=== PATIENT | male | born 1960 | race Two or more races ===

== ENCOUNTER 2016-10-23 21:36 | Emergency (ER) | payer MEDICAID, OTHER ==
[~2016-10-23] VITALS: Ht 172.7 cm; Wt 71.2 kg
--- NOTE | 2016-10-23 21:38 | NUR ---
PT BILL [facility] TO ER BED 12. PRESENTS W FACIAL ABRASIONS, FALL, POSSIBLE ETOH, EMPTY ATIVAN PILL CONTAINER FOUND W/ PT'S BELONGINGS. GOWNED AND PLACED ON MONITOR. NAD NOTED. AWAITING MD JASON.
--- NOTE | 2016-10-23 21:58 | NUR ---
COLLEEN DOHERTY AT BEDSIDE FOR EVAL.
[2016-10-23] MEDS ORDERED: IV NS 0.9% 1,000 ML BAG IV ONE (22:00)
[2016-10-23 22:18] LABS: CALCIUM, SERUM 7.8 mg/dL (8.5-10.1); CARBON DIOXIDE 27 mmol/L (21-32); CHLORIDE 109 mmol/L (98-107); CREATININE 1.1 mg/dL (0.6-1.3); GLUCOSE 105 mg/dL (74-106); POTASSIUM 3.5 mmol/L (3.5-5.1); SODIUM SERUM 146 mmol/L (136-145); UREA NITROGEN, BLOOD 18 mg/dL (7-18)
[2016-10-23 22:26] LABS: ACETAMINOPHEN 0 ug/ml (10-30); ALANINE AMINOTRANSFERASE 40 U/L (12-78); ALBUMIN 3.7 g/dL (3.4-5.0); ALCOHOL, BLOOD 339 mg/dL (0-0); ALKALINE PHOSPHATASE 42 U/L (46-116); ASPARTATE AMINOTRANSFERASE 32 U/L (15-37); BILIRUBIN,DIRECT 0.1 mg/dL (0.0-0.2); BILIRUBIN,TOTAL 0.5 mg/dL (0.2-1.0); SALICYLATE 0.7 mg/dL (2.8-20.0); TOTAL PROTEIN, SERUM 7.2 g/dL (6.4-8.2)
--- NOTE | 2016-10-23 22:28 | NUR ---
PT TO RADIOLOGY FOR HEAD AND C SPINE CT SCAN VIA ANASTASIA
[2016-10-23 22:32] LABS: BASOPHILS % (AUTO) 0.5 % (0.0-2.0); EOSINOPHILS # (AUTO) 0.1 /CMM (0.0-0.7); EOSINOPHILS % (AUTO) 1.8 % (0.0-6.0); HEMATOCRIT 47 % (39-51); HEMOGLOBIN 15.7 g/dL (13.5-17.5); LYMPHOCYTES # (AUTO) 3.2 /CMM (0.8-4.8); LYMPHOCYTES % (AUTO) 45.9 % (20.0-44.0); MEAN CORPUSCULAR HEMOGLOBIN 32 PG (26.0-33.0); MEAN CORPUSCULAR HGB CONC 34 g/dl (31.0-36.0); MEAN CORPUSCULAR VOLUME 95 fL (80-96); MONOCYTES # (AUTO) 0.6 /CMM (0.1-1.30); MONOCYTES % (AUTO) 7.9 % (2.0-12.0); NEUTROPHILS # (AUTO) 3.1 /CMM (1.8-8.9); NEUTROPHILS % (AUTO) 43.9 % (43.0-81.0); PLATELET COUNT (AUTO) 184 /CMM (150-450); RDW COEFFICIENT OF VARIATION 13.8 (11.5-15.0); WHITE BLOOD COUNT (AUTO) 7.1 K/uL (4.3-11.0)
[2016-10-23 22:41] LABS: INR 0.9 (0.87-1.13); PROTHROMBIN TIME 9.6 SECS (9.5-12.7)
[2016-10-23 22:54] LABS: TROPONIN I < 0.017 ng/mL (0.00-0.056)
--- NOTE | 2016-10-23 23:21 | NUR ---
REPORT TO CHARGE NURSE FOSTER FOR SARAH.
[2016-10-24] MEDS ORDERED: TDAP [DIPH/PERTUSSIS/TET] 0.5 ML VIAL IM ONE
--- NOTE | 2016-10-24 01:20 | NUR ---
PT RESTING COMFORTABLY ON BED. VSS, NAD NOTED. PT AWAKEN TO NAME THEN RETURNS TO SLEEP. WILL CONT TO MONITOR.
--- NOTE | 2016-10-24 03:20 | NUR ---
PT RESTING COMFORTABLY ON BED. VSS, NAD NOTED. PT AWAKEN TO NAME; GIVEN WARM BLANKET THEN RETURNS TO SLEEP. WILL CONT TO MONITOR.
--- NOTE | 2016-10-24 04:15 | NUR ---
PT SLEEPING LEFT LATERAL ON BED. VSS, NAD NOTED. PT AWAKEN TO NAME THEN RETURNS TO SLEEP. WILL CONT TO MONITOR.
--- NOTE | 2016-10-24 06:51 | NUR ---
Patient discharged to home in stable condition. Written and verbal after care instructions given. Patient verbalizes understanding of instruction. IV removed. Catheter intact and site benign. Pressure and 4x4 applied to site. No bleeding noted. Pt ambulatory with a steady gait. VSS, NAD noted on DC. Pt declined tetanus booster stating, "I got a tetanus shot last year." Pt denies complaint on DC.
[2016-10-24 06:53] VITALS: BP 141/85
== END 2016-10-24 06:54 | disposition home or self-care (01) ==
LOC: ER 21:37
DX: S00.531A Contusion of lip, initial encounter (principal); S00.211A Abrasion of right eyelid and periocular area, initial encounter; S09.93XA Unspecified injury of face, initial encounter; R40.1 Stupor; F10.129 Alcohol abuse with intoxication, unspecified; F15.10 Other stimulant abuse, uncomplicated; E86.0 Dehydration; W18.39XA Other fall on same level, initial encounter; Y93.89 Activity, other specified; Y92.89 Other specified places as the place of occurrence of the external cause; Y99.9 Unspecified external cause status
CPT/HCPCS: 36415; 70450-TC; 71010-TC; 72125-TC; 80048-TC; 80076-TC; 80305; 82962-TC; 84484-TC; 85025-TC; 85730-TC; A4606; A6402; G0480; J7030; L0172; Z7610

== ENCOUNTER 2022-12-15 06:01 | Emergency (ER) | payer MEDICAID ==
[~2022-12-15] VITALS: Ht 180.3 cm; Wt 79.4 kg
[2022-12-15 08:16] LABS: BASOPHILS % (AUTO) 0.7 % (0.0-2.0); EOSINOPHILS # (AUTO) 0.1 K/uL (0.0-0.7); EOSINOPHILS % (AUTO) 1.1 % (0.0-6.0); HEMATOCRIT 45 % (39-51); HEMOGLOBIN 14.8 g/dL (13.5-17.5); LYMPHOCYTES # (AUTO) 1.4 K/uL (0.8-4.8); LYMPHOCYTES % (AUTO) 23.1 % (20.0-44.0); MEAN CORPUSCULAR HEMOGLOBIN 30 PG (26.0-33.0); MEAN CORPUSCULAR HGB CONC 33 g/dl (31.0-36.0); MEAN CORPUSCULAR VOLUME 92 fL (80-96); MONOCYTES # (AUTO) 0.6 K/uL (0.1-1.30); MONOCYTES % (AUTO) 9.9 % (2.0-12.0); NEUTROPHILS # (AUTO) 3.9 K/uL (1.8-8.9); NEUTROPHILS % (AUTO) 65.2 % (43.0-81.0); PLATELET COUNT (AUTO) 195 K/uL (150-450); RED BLOOD CELL COUNT(AUTO) 4.88 MIL/uL (4.5-6.0); RED CELL DISTRIBUTION WIDTH 13.8 % (11.5-15.0)
[2022-12-15 08:30] LABS: CALCIUM, SERUM 8.5 mg/dL (8.5-10.1); CREATININE 1.3 mg/dL (0.6-1.3); POTASSIUM 3.9 mmol/L (3.5-5.1)
[2022-12-15] MEDS ORDERED: HYDR28.32 TP (08:48)
[2022-12-15 08:53] VITALS: BP 145/77; TEMP 98.7; O2SAT 100
== END 2022-12-15 08:53 | disposition home or self-care (01) ==
LOC: ER 06:29
DX: R51.9 Headache, unspecified (principal); R21 Rash and other nonspecific skin eruption
CPT/HCPCS: 36415; 70450-TC; 80048-TC; 85025-TC

== ENCOUNTER 2024-08-09 13:43 | Emergency (ER) | payer MEDICAID ==
[~2024-08-09] VITALS: Ht 180.3 cm; Wt 74.8 kg
[~2024-08-09 13:43] MED LIST: HYDR28.32 TP
[2024-08-09 13:56] VITALS: TEMP 98.5
[2024-08-09] MEDS ORDERED: LORAZEPAM 1 MG TABLET ONE (14:47)
[2024-08-09] MEDS: LORAZEPAM 1 MG TABLET PO ONE (14:50)
[2024-08-09 14:59] VITALS: BP 144/75; O2SAT 100
== END 2024-08-09 14:49 | disposition home or self-care (01) ==
LOC: ER 13:43
DX: R44.0 Auditory hallucinations (principal); Z60.2 Problems related to living alone; Z79.899 Other long term (current) drug therapy

== ENCOUNTER 2024-11-21 19:39 | Emergency (ER) | payer SELFPAY | END 2024-11-21 20:26 | disposition left against medical advice (07) | LOC: ER 19:45 | DX: A41.9 Sepsis, unspecified organism (principal); Z53.21 Procedure and treatment not carried out due to patient leaving prior to being seen by health care provider ==

== ENCOUNTER 2024-11-26 16:19 | Emergency (ER) | payer SELFPAY | END 2024-11-26 16:54 | disposition left against medical advice (07) | LOC: ER 16:23 | DX: Z00.00 Encounter for general adult medical examination without abnormal findings (principal); Z53.21 Procedure and treatment not carried out due to patient leaving prior to being seen by health care provider ==